=== PATIENT | male | born 1930 | race Caucasian/White ===

== ENCOUNTER 2018-04-16 20:21 | Emergency (ER) | payer MEDICARE ==
[~2018-04-16] VITALS: Ht 172.7 cm; Wt 127.9 kg
[2018-04-16] MEDS ORDERED: SODIUM BICARBONATE [ADULT] 8.4% 50 MEQ/50 ML SYRINGE IVP ONE (20:24)
[2018-04-16] MEDS ORDERED: EPINEPHrine 1:10,000 [1 MG/10 ML] SYRINGE IVP ONE (20:24)
[2018-04-16] MEDS ORDERED: AMIODARONE HCL 50 MG/ML 3 ML VIAL IVP ONE (20:24)
[2018-04-16] MEDS ORDERED: ISOS30TA6 PO (20:36)
[2018-04-16] MEDS ORDERED: ASPI81 PO (20:36)
[2018-04-16] MEDS ORDERED: CLOP75TA3 PO (20:36)
[2018-04-16] MEDS ORDERED: LEVA0.634 NEB (20:36)
[2018-04-16] MEDS ORDERED: LEVO25TA9 PO (20:36)
[2018-04-16] MEDS ORDERED: ALPR0.5T8 PO (20:36)
[2018-04-16] MEDS ORDERED: GLIM2 PO (20:36)
[2018-04-16] MEDS ORDERED: NITR.3 SL (20:36)
[2018-04-16] MEDS ORDERED: LOSA50TA64 PO (20:36)
[2018-04-16 20:56] LABS: BASOPHILS % (AUTO) 0.8 % (0.0-2.0); EOSINOPHILS % (AUTO) 0.8 % (1.0-6.0); HEMATOCRIT 38.2 % (41-53); HEMOGLOBIN 11.9 g/dL (13.5-17.5); LYMPHOCYTES # (AUTO) 5.2 K/uL (1.0-4.8); LYMPHOCYTES % (AUTO) 33.2 % (22.0-44.0); MEAN CORPUSCULAR HEMOGLOBIN 29.6 pg (26.0-34.0); MEAN CORPUSCULAR HGB CONC 31.2 G/dL (31.0-37.0); MEAN CORPUSCULAR VOLUME 95 fL (80-100); MONOCYTES # (AUTO) 0.9 K/uL (0.1-1.0); NEUTROPHILS # (AUTO) 9.3 K/uL (1.8-7.7); NEUTROPHILS % (AUTO) 59.2 % (40.0-70.0); PLATELET COUNT (AUTO) 229 K/uL (150-450); RED BLOOD CELL COUNT(AUTO) 4.02 MIL/uL (4.50-5.90); RED CELL DISTRIBUTION WIDTH 15.7 % (11.5-14.5)
[2018-04-16 20:58] LABS: GLUCOSE,POINT OF CARE 304 MG/DL (70-110)
[2018-04-16 21:07] LABS: PROTHROMBIN TIME 10.6 SEC (9.4-11.6)
[2018-04-16 21:10] LABS: CALCIUM, TOTAL 8.4 mg/dL (8.8-10.5); CREATININE 1.87 mg/dL (0.60-1.30); POTASSIUM 4.8 mmol/L (3.5-5.1)
[2018-04-16] MEDS ORDERED: IOVERSOL 350 MG/ML 100 ML VIAL ONE (21:32)
[2018-04-16] MEDS ORDERED: SODIUM CHLORIDE 0.9% 100 ML ONE (21:33)
[2018-04-16 21:36] LABS: ALBUMIN 2.6 g/dL (3.4-5.0); BILIRUBIN,TOTAL 0.7 mg/dL (0.1-1.0); TOTAL PROTEIN, SERUM 6.2 g/dL (6.4-8.2)
[2018-04-16 22:04] LABS: LACTIC ACID 4.1 mmol/L (0.4-2.0)
[2018-04-16] MEDS ORDERED: AMIODARONE HCL 360 MG in DEXTROSE 5%-WATER 242.8 ML IV ONE (22:45)
[2018-04-16] MEDS ORDERED: EPINEPHrine 2 MG in DEXTROSE 5%-WATER 248 ML IV PRN (23:15)
[2018-04-17 00:15] VITALS: BP 117/74
== END 2018-04-17 04:00 | disposition expired ==
LOC: EMS 20:23
DX: I46.9 Cardiac arrest, cause unspecified (principal); I25.10 Atherosclerotic heart disease of native coronary artery without angina pectoris; E11.9 Type 2 diabetes mellitus without complications; E78.00 Pure hypercholesterolemia, unspecified; Z88.0 Allergy status to penicillin; Z88.2 Allergy status to sulfonamides; Z79.82 Long term (current) use of aspirin
CPT/HCPCS: 31500; 70450; 71045; 71260; 72125; 72193; 74160; 80053; 82550; 82962; 83605; 83880; 84484; 85025; 85610; 85730; 93005; 94660; 99291; 99292; J0171; J0282 ×2; J3490; J7050; J7060; Q9967